=== PATIENT | male | born 1980 | race American Indian/Alaskan Native ===

== ENCOUNTER 2016-02-22 11:02 | Outpatient (CLI) | payer OTHER ==
--- NOTE | 2016-02-25 13:27 | Cat Scan Report ---
CT LUMBAR SPINE WITHOUT CONTRAST (CT DISCOGRAM): 02/22/16 11:02:00 CLINICAL: Low back pain without myelopathy. TECHNIQUE: Disc injections were performed at L3-4, L4-5 and L5-S1 prior to the CT by Dr. Perry. Volumetric acquisition and 1.25-mm axial scan reconstructions without contrast. Sagittal and coronal reformats were performed.The injected discs were graded according to the Modified Geovany Classification. FINDINGS: Normal vertebral body height, alignment and disk spaces. No fracture or subluxation. L1-2:Intact. L2-3:Intact. L3-4:Mild circumferential disc bulge. Grade 1 right posterolateral extravasation and grade 2 left posterolateral extravasation. L4-5:Mild circumferential disc bulge. Bilateral grade I posterolateral extravasation. L5-S1:Mild circumferential disc bulge with a small focal central disc protrusion. Central annular tear with grade 5 central and left paracentral extravasation. IMPRESSION: Degenerative disc disease with disc bulges and annular tears with contrast extravasation as described above. Small focal central disc protrusion at L5-S1.
== END 2016-02-22 11:03 | disposition home or self-care (01) ==
LOC: SPVIMAG 11:02
PROVIDERS: ATTEND Physical Medicine & Rehabilitation
DX: M51.26 Other intervertebral disc displacement, lumbar region (principal); M51.27 Other intervertebral disc displacement, lumbosacral region
CPT/HCPCS: 72131